=== PATIENT | female | born 1945 | race Caucasian/White ===

== ENCOUNTER → 2016-08-16 | Outpatient (CLI) | payer MEDICARE, BC ==
[2016-08-16 09:32] LABS: BASOPHIL# 0.1 X10e3 (0-0.3); BASOPHIL% 0.9 % (0-2.5); EOSINOPHIL# 0.5 X10e3 (0-0.7); EOSINOPHIL% 4.7 % (0.0-7.0); HEMATOCRIT 29.6 % (35.0-45.0); HEMOGLOBIN 9.8 gm/dL (12.0-16.0); LYMPHOCYTE# 1.2 X10e3 (1.0-3.5); MEAN CELL VOLUME 83.1 FL (83-96); MEAN CORPUSCULAR HEMOGLOBIN 27.5 PG (28-34); MEAN CORPUSCULAR HGB CONC 33.1 g/dL (30-36); MEAN PLATELET VOLUME 7.5 FL (6.5-11.5); MONOCYTE# 0.5 X10e3 (0-1.0); MONOCYTE% 5.3 % (3.0-12.0); NEUTROPHIL# 7.5 X10e3 (1.5-7.1); NEUTROPHIL% 77.1 % (40-75); PLATELET COUNT 163 X10e3 (140-420); RED BLOOD COUNT 3.56 X10e (3.90-5.30); RED CELL DISTRIBUTION WIDTH 16.1 % (11.0-15.5); WHITE BLOOD COUNT 9.7 X10e3 (4.0-10.5)
[2016-08-16 09:35] LABS: DIFF IND NO
[2016-08-16 10:10] LABS: ALBUMIN SERUM 3.3 g/dL (3.5-5.0); BILIRUBIN,TOTAL 0.4 mg/dL (0.2-2.0); BUN/CREATININE RATIO 19.41; CALCIUM SERUM 8.8 mg/dL (8.4-10.2); CREATININE SERUM 1.7 mg/dL (0.6-1.4); GLOM FILT RATE Estimated 29.6 mL/min (>60); PROTEIN TOTAL SERUM 6.5 g/dL (6.0-8.3)
== END | disposition home or self-care (01) ==
LOC: CTPL 08:49
PROVIDERS: Surgery
DX: Z48.23 Encounter for aftercare following liver transplant (principal); Z13.1 Encounter for screening for diabetes mellitus; T45.1X1D Poisoning by antineoplastic and immunosuppressive drugs, accidental (unintentional), subsequent encounter; Z94.4 Liver transplant status; Z79.899 Other long term (current) drug therapy
CPT/HCPCS: 36415; 80053; 80195; 82465; 83036; 84478; 85025

== ENCOUNTER → 2016-10-15 | Outpatient (CLI) | payer MEDICARE, BC ==
[2016-10-15 10:00] LABS: BASOPHIL# 0.1 X10e3 (0-0.3); BASOPHIL% 0.5 % (0-2.5); EOSINOPHIL# 0.5 X10e3 (0-0.7); EOSINOPHIL% 4.2 % (0.0-7.0); HEMOGLOBIN 10.3 gm/dL (12.0-16.0); LYMPHOCYTE# 1.5 X10e3 (1.0-3.5); LYMPHOCYTE% 13.3 % (17.0-45.0); MEAN CELL VOLUME 84.3 FL (83-96); MEAN CORPUSCULAR HEMOGLOBIN 27.2 PG (28-34); MEAN CORPUSCULAR HGB CONC 32.3 g/dL (30-36); MEAN PLATELET VOLUME 7.9 FL (6.5-11.5); MONOCYTE# 0.7 X10e3 (0-1.0); MONOCYTE% 6.1 % (3.0-12.0); NEUTROPHIL# 8.3 X10e3 (1.5-7.1); NEUTROPHIL% 75.9 % (40-75); PLATELET COUNT 191 X10e3 (140-420); RED CELL DISTRIBUTION WIDTH 15.5 % (11.0-15.5); WHITE BLOOD COUNT 10.9 X10e3 (4.0-10.5)
[2016-10-15 10:02] LABS: DIFF IND NO
[2016-10-15 10:30] LABS: ALBUMIN SERUM 3.6 g/dL (3.5-5.0); BILIRUBIN,TOTAL 0.3 mg/dL (0.2-2.0); BUN/CREATININE RATIO 23.33; CALCIUM SERUM 9.2 mg/dL (8.4-10.2); CREATININE SERUM 1.5 mg/dL (0.6-1.4); GLOM FILT RATE Estimated 34.5 mL/min (>60); POTASSIUM 4.6 mmol/L (3.5-5.1); PROTEIN TOTAL SERUM 7.4 g/dL (6.0-8.3)
== END | disposition home or self-care (01) ==
LOC: CTPL 09:23
PROVIDERS: Surgery
DX: Z48.23 Encounter for aftercare following liver transplant (principal); T45.1X1D Poisoning by antineoplastic and immunosuppressive drugs, accidental (unintentional), subsequent encounter; Z79.891 Long term (current) use of opiate analgesic
CPT/HCPCS: 36415; 80053; 80195; 85025

== ENCOUNTER 2016-11-04 13:46 | Emergency (ER) | payer MEDICARE, BC ==
--- NOTE | ~2016-11-04 | CT57 ---
[facility] A Service of [facility] & [facility] RADIOLOGY TEXT RESULTS PATIENT: LISA MONACO LOCATION: [facility] : 43 UNIT #: [id number] AGE: [address]: Marcelle Forbes MD SEX: F ORDER DR: [id number] [facility] [address] [place], [place] [address] [id number] E MR#: [id number] Acc #: [id number] NAME: LISA MONACO. : 1945 SEX: F STUDY DATE/TIME: 11/04/2016 16:53 UNIT: [facility] ROOM: STUDY DESCRIPTION: CT Chest Wo Cont Attending Physician: Marcelle Forbes M.D. Ordering Physician: Marcelle Forbes M.D. Primary Care Physician: Luis Alfredo Cruz III, M.D. MEDICAL IMAGING REPORT This report is preliminary unless electronic signature is present EXAM CT of the chest without contrast. INDICATIONS Shortness of breath for [address] images were obtained from the thoracic inlet through the dome of the diaphragm. This CT exam was performed with one or more of the following radiation dose reduction techniques: automatic exposure control, adjustment of mA and/or kV according to patient size, and iterative reconstruction. No intravenous contrast material was administered. Patient's CT of the abdomen will be dictated separately. FINDINGS The thyroid gland, trachea, and esophagus appear unremarkable. Patient has a left-sided pacemaker and dense calcifications of the mitral valve annulus. Mildly prominent lower right paratracheal node has been stable since July 2011 and, thus is benign. There is some trace pericardial fluid/thickening and the patient does have some interlobular septal thickening, but this has been present on prior examinations. A component of some chronic underlying interstitial lung disease is not excluded. Alternatively, it could reflect some vascular congestion. No effusions are seen. Patient's CT of the abdomen, again, will be dictated separately. No aggressive osseous abnormalities are seen. There is compression deformity identified at T9, which is age indeterminate, but is favored to be chronic. IMPRESSION 1. This patient has some interlobular septal thickening, which is nonspecific. I think it probably was present on prior examinations and could reflect some underlying chronic interstitial lung disease or even some chronic vascular congestion. No definite infiltrates STS. [facility] A Service of [facility] RADIOLOGY TEXT RESULTS PATIENT: LISA MONACO LOCATION: [facility] : 43 UNIT #: [id number] AGE: [address]: Marcelle Forbes MD SEX: F ORDER DR: are seen. Patient does have some bibasilar scarring. 2. Trace pericardial fluid/thickening. 3. Dense dystrophic calcifications involving the mitral valve annulus. 4. T9 compression deformity. Age indeterminant, but favored to be chronic. Dictated by... Kamini Moreno M.D. THIS IS AN ELECTRONICALLY VERIFIED REPORT Kamini Moreno M.D. at 11/05/2016 12:53 PM AFF/pc TD: 11/05/2016 07:57 JOB #: [id number] MEDICAL IMAGING REPORT Page 1 of 1 COPY
--- NOTE | ~2016-11-04 | CT4 ---
[facility] A Service of [facility] RADIOLOGY TEXT RESULTS PATIENT: LISA MONACO LOCATION: [facility] : 44 UNIT #: [id number] AGE: [address]: Marcelle Forbse MD SEX: F ORDER DR: [id number] [place] [id number] [place], [place] [address] [id number] E MR#: [id number] Acc #: [id number] NAME: LISA MONACO. : 1945 SEX: F STUDY DATE/TIME: 11/04/2016 15:56 UNIT: [facility] ROOM: STUDY DESCRIPTION: CT Abd and Pelv Wo Cont Attending Physician: Marcelle Forbes M.D. Ordering Physician: Marcelle Forbes M.D. Primary Care Physician: Luis Alfredo Cruz III, M.D. MEDICAL IMAGING REPORT This report is preliminary unless electronic signature is present EXAM CT abdomen and pelvis without contrast HISTORY 71-year-old female with history of liver transplant, having nausea and vomiting x4 days. COMPARISON 08/01/2011 FINDINGS Axial images performed through the abdomen and pelvis without contrast. Multiplanar reconstructed images reviewed at a workstation. This CT exam was performed with one or more of the following radiation dose reduction techniques: Automatic exposure control, adjustment of mA and/or kV according to patient size, and iterative reconstruction. Lung bases unremarkable. Liver unremarkable. 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 This measures up to 1.7 cm. This does measure slightly larger than the study of 08/01/2011. Pancreas, kidneys and adrenal glands unremarkable except for mild diffuse renal cortical atrophy. Stomach, small bowel and colon unremarkable except for scattered diverticular changes. Retroperitoneum unremarkable. PELVIS: Bladder, uterus and adnexa appear normal. Multilevel degenerative disc disease and facet arthropathy noted in the lower lumbar spine with multilevel spinal stenosis most pronounced L3-4. The extraabdominal soft tissues unremarkable. Generalized obesity. Extensive valvular calcifications are noted within the mitral valve and pacemaker leads noted. IMPRESSION [facility] A Service of [facility] RADIOLOGY TEXT RESULTS PATIENT: LISA MONACO LOCATION: [facility] #: [id number] : 43 UNIT #: [id number] AGE: [address]: Marcelle Forbes MD SEX: F ORDER DR: 1. No acute intraabdominal or intrapelvic pathology identified. 2. Renal cortical atrophy. 3. 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 This measures about 1.7 cm. 4. Moderately advanced degenerative disc disease lumbar spine with multilevel spinal stenosis. Dictated by... Eliza Zaman M.D. THIS IS AN ELECTRONICALLY VERIFIED REPORT Eliza Zaman M.D. at 11/05/2016 3:08 PM AUGUSTA/damir TD: 11/05/2016 05:31 JOB #: [id number] MEDICAL IMAGING REPORT Page 1 of 1 COPY
[2016-11-04 15:10] LABS: BASOPHIL# 0.1 X10e3 (0-0.3); BASOPHIL% 0.8 % (0-2.5); EOSINOPHIL# 0.3 X10e3 (0-0.7); EOSINOPHIL% 2.4 % (0.0-7.0); HEMATOCRIT 35.4 % (35.0-45.0); HEMOGLOBIN 11.2 gm/dL (12.0-16.0); LYMPHOCYTE# 1.3 X10e3 (1.0-3.5); LYMPHOCYTE% 9.8 % (17.0-45.0); MEAN CELL VOLUME 84.5 FL (83-96); MEAN CORPUSCULAR HEMOGLOBIN 26.7 PG (28-34); MEAN CORPUSCULAR HGB CONC 31.6 g/dL (30-36); MEAN PLATELET VOLUME 8.2 FL (6.5-11.5); MONOCYTE# 0.9 X10e3 (0-1.0); MONOCYTE% 6.8 % (3.0-12.0); NEUTROPHIL# 10.8 X10e3 (1.5-7.1); NEUTROPHIL% 80.2 % (40-75); PLATELET COUNT 179 X10e3 (140-420); RED BLOOD COUNT 4.19 X10e (3.90-5.30); RED CELL DISTRIBUTION WIDTH 15.8 % (11.0-15.5); WHITE BLOOD COUNT 13.5 X10e3 (4.0-10.5)
[2016-11-04 15:16] LABS: DIFF IND NO
[2016-11-04 15:42] LABS: ALBUMIN SERUM 3.9 g/dL (3.5-5.0); BILIRUBIN, DIRECT 0.1 mg/dL (0.0-0.2); BILIRUBIN,INDIRECT 0.4 mg/dL (0.0-0.9); BILIRUBIN,TOTAL 0.5 mg/dL (0.2-2.0); CALCIUM SERUM 9.6 mg/dL (8.4-10.2); CREATININE SERUM 1.7 mg/dL (0.6-1.4); GLOM FILT RATE Estimated 29.6 mL/min (>60); POTASSIUM 4.7 mmol/L (3.5-5.1); PROTEIN TOTAL SERUM 7.9 g/dL (6.0-8.3)
[2016-11-04 18:12] LABS: URINE SOURCE CLEAN CATCH
[2016-11-04 18:23] LABS: URINE APPEARANCE CLEAR; URINE BILIRUBIN NEG (NEG); URINE BLOOD TRACE (NEG); URINE COLOR YELLOW; URINE GLUCOSE NEG (NEG); URINE KETONE TRACE (NEG); URINE LEUKOCYTE ESTERASE TRACE (NEG); URINE NITRATE NEG (NEG); URINE PROTEIN NEG (NEG); URINE SPECIFIC GRAVITY 1.011 (1.003-1.035); URINE UROBILINOGEN 0.2 MG/DL (NEG)
[2016-11-04 18:25] LABS: CULTURE INDICATED? YES; URBCS1 AUWI 0-2 /[HPF] (0-2); URINE BACTERIA AUWI 1+ (NEGATIVE); URINE SQUAMOUS EPITHELIAL CELL OCC /[HPF]
== END 2016-11-04 19:15 | disposition home or self-care (01) ==
LOC: CED 13:46 → CFTX 17:31 → CED 19:15
DX: R19.7 Diarrhea, unspecified (principal); I10 Essential (primary) hypertension; E78.5 Hyperlipidemia, unspecified; Z90.49 Acquired absence of other specified parts of digestive tract; Z88.2 Allergy status to sulfonamides; Z88.5 Allergy status to narcotic agent; Z88.8 Allergy status to other drugs, medicaments and biological substances
CPT/HCPCS: 36415; 71250; 74176; 80048; 80076; 81003; 83690; 85025; 87086; 87088; 87186; 96360; 96361; 99284

== ENCOUNTER 2016-12-29 20:31 | Emergency (ER) | payer MEDICARE, BC ==
[~2016-12-29] VITALS: Ht 157.5 cm; Wt 90.7 kg
--- NOTE | ~2016-12-29 | CR72 ---
[facility] A Service of [facility] & [facility] RADIOLOGY TEXT RESULTS PATIENT: LISA MONACO LOCATION: [facility] UNIT : 44 UNIT #: [id number] AGE: [address]: Luis Alfredo Lamb MD SEX: F ORDER DR: [id number] [facility] [address] [place], [place] [address] [id number] E MR#: [id number] Acc #: [id number] NAME: LISA MONACO : 1945 SEX: F STUDY DATE/TIME: 12/29/2016 UNIT: [facility] ROOM: STUDY DESCRIPTION: CR Chest Single View Portable Attending Physician: Luis Alfredo Lamb M.D. Ordering Physician: Luis Alfredo Lamb M.D. Primary Care Physician: Luis Alfredo Cruz III, M.D. MEDICAL IMAGING REPORT This report is preliminary unless electronic signature is present EXAM Portable chest 12/29 at 23:30 INDICATIONS Chest and mid back pain for the last 4 days. No trauma. History of liver transplant and hypertension. FINDINGS AP portable chest compared with 09/10/2016. Cardiomegaly is stable. There is some mitral valve annulus calcification. There is some central vascular congestion. There is chronic scarring or atelectasis in the bases. No pneumothorax is seen. IMPRESSION Stable cardiomegaly. Mild vascular congestion is present. There is chronic mild atelectasis or scarring in both lung bases. Dictated by... Luis Alfredo Barber Jr., M.D. THIS IS AN ELECTRONICALLY VERIFIED REPORT Luis Alfredo Barber Jr., M.D. at 12/31/2016 5:51 AM KAROLINE/cecily TD: 12/30/2016 09:54 JOB #: [id number] MEDICAL IMAGING REPORT Page 1 of 1 COPY
--- NOTE | ~2016-12-29 | EKG ---
PATIENT: LISA MONACO UNIT #: [id number] Ventricular Rate: 60 BPM Atrial Rate: 60 BPM P-R Interval: 196 ms QRS Duration: 76 ms Q-T Interval: 412 ms QTC Calculation(Bezet): 412 ms P [place]: 54 degrees Calculated R [place]: 46 degrees Calculated T [place]: 45 degrees Diagnosis Line: Normal sinus rhythm Diagnosis Line: Normal ECG Diagnosis Line: Confirmed by TYRONE GALO MD ([id number]) on 12/30/2016 Diagnosis Line: 6:27:12 PM INTERPRETING MD: IRAJ PETERSEN
[2016-12-30 00:07] LABS: BASOPHIL# 0.1 X10e3 (0-0.3); BASOPHIL% 0.8 % (0-2.5); EOSINOPHIL# 0.5 X10e3 (0-0.7); EOSINOPHIL% 3.9 % (0.0-7.0); HEMATOCRIT 30.5 % (35.0-45.0); HEMOGLOBIN 9.9 gm/dL (12.0-16.0); LYMPHOCYTE# 1.6 X10e3 (1.0-3.5); LYMPHOCYTE% 12.7 % (17.0-45.0); MEAN CELL VOLUME 83.1 FL (83-96); MEAN CORPUSCULAR HGB CONC 32.5 g/dL (30-36); MEAN PLATELET VOLUME 7.9 FL (6.5-11.5); MONOCYTE# 0.7 X10e3 (0-1.0); MONOCYTE% 5.4 % (3.0-12.0); NEUTROPHIL# 9.8 X10e3 (1.5-7.1); NEUTROPHIL% 77.2 % (40-75); PLATELET COUNT 229 X10e3 (140-420); RED BLOOD COUNT 3.67 X10e (3.90-5.30); RED CELL DISTRIBUTION WIDTH 15.9 % (11.0-15.5); WHITE BLOOD COUNT 12.7 X10e3 (4.0-10.5)
[2016-12-30 00:11] LABS: DIFF IND NO
[2016-12-30 00:18] LABS: INR 1.1; PROTHROMBIN TIME (PATIENT) 11.6 SECONDS (10.0-11.7)
[2016-12-30 00:20] LABS: POC - CKMB 1.1 ng/mL (0.0-7.9); POC - TROPONIN <0.05 ng/mL (<=0.05)
[2016-12-30 00:28] LABS: ALBUMIN SERUM 3.4 g/dL (3.5-5.0); BILIRUBIN,TOTAL 0.2 mg/dL (0.2-2.0); BUN/CREATININE RATIO 22.66; CALCIUM SERUM 9.1 mg/dL (8.4-10.2); CREATININE SERUM 1.5 mg/dL (0.6-1.4); GLOM FILT RATE Estimated 34.5 mL/min (>60); POTASSIUM 4.6 mmol/L (3.5-5.1); PROTEIN TOTAL SERUM 7.4 g/dL (6.0-8.3)
[2016-12-30 00:29] LABS: BILIRUBIN, DIRECT 0.1 mg/dL (0.0-0.2); BILIRUBIN,INDIRECT 0.1 mg/dL (0.0-0.9)
[2016-12-30 01:17] LABS: URINE SOURCE CLEAN CATCH
[2016-12-30 01:22] LABS: URINE APPEARANCE CLEAR; URINE BILIRUBIN NEG (NEG); URINE BLOOD NEG (NEG); URINE COLOR YELLOW; URINE GLUCOSE NEG (NEG); URINE KETONE NEG (NEG); URINE LEUKOCYTE ESTERASE 2+ (NEG); URINE NITRATE POS (NEG); URINE PROTEIN TRACE (NEG); URINE SPECIFIC GRAVITY 1.023 (1.003-1.035); URINE UROBILINOGEN 0.2 MG/DL (NEG)
[2016-12-30 01:24] LABS: CULTURE INDICATED? YES; URINE BACTERIA AUWI 1+ (NEGATIVE); URINE SQUAMOUS EPITHELIAL CELL OCC /[HPF]; UWBCS1 AUWI 25-50 (0-5)
== END 2016-12-30 02:32 | disposition home or self-care (01) ==
LOC: CED 20:31
PROVIDERS: Emergency Medicine
DX: N39.0 Urinary tract infection, site not specified (principal); D64.9 Anemia, unspecified; Z88.2 Allergy status to sulfonamides; Z88.5 Allergy status to narcotic agent; Z98.890 Other specified postprocedural states
CPT/HCPCS: 36415; 71010; 80048; 80076; 81003; 82553; 84484; 85025; 85610; 87086; 87088; 87186; 93005; 96365; 96375; 99284; J0696; J1885